=== PATIENT | female | born 1990 | race Two or more races ===

== ENCOUNTER 2022-04-23 23:59 | Emergency (ER) | payer MEDICAID ==
[~2022-04-23] VITALS: Ht 149.9 cm; Wt 90.9 kg
[2022-04-24] MEDS ORDERED: ACETAMINOPHEN 500 MG TABLET PO ONE (00:30)
[2022-04-24] MEDS ORDERED: IBUPROFEN 600 MG TABLET PO ONE (00:30)
[2022-04-24 02:01] VITALS: BP 116/60
== END 2022-04-24 02:27 | disposition home or self-care (01) ==
LOC: EMS 04-24
DX: R51.9 Headache, unspecified (principal)
CPT/HCPCS: 99283